=== PATIENT | male | born 1980 | race Caucasian/White ===

== ENCOUNTER → 2024-03-24 14:38 | Outpatient (REF) | payer BC, SELFPAY | LOC: DHCBC MAIN 14:38 | PROVIDERS: ATTENDING PHYSICIAN Internal Medicine Cardiovascular Disease; FAMILY PHYSICIAN Family Medicine | DX: R00.2 Palpitations (principal); I77.810 Thoracic aortic ectasia | CPT/HCPCS: 93306 ==

== ENCOUNTER 2025-01-07 23:41 | Observation (INO) | payer BC, SELFPAY ==
[2025-01-07 20:01] VITALS: BP 147/92
[2025-01-07 20:26] LABS: % Basophils 0.7 % (0-2); % Eosinophils 1.7 % (0-6); % Immature Granulocytes 0.3 % (0-0.5); % Monocytes 7.5 % (1.7-9.3); % Neutrophils 45.8 % (42.2-75.2); Absolute Basophils 0.1 10^3/uL (0-0.2); Absolute Eosinophils 0.2 10^3/uL (0-0.7); Absolute Lymphocytes 3.9 10^3/uL (1.2-3.4); Absolute Monocytes 0.7 10^3/uL (0.1-0.6); Hematocrit 43.6 % (39.0-52.0); Hemoglobin 15.2 g/dL (13.0-18.0); Mean Corp Hgb Conc. 34.9 g/dL (33.0-37.0); Mean Corpuscular Hgb 31.1 pg (27.0-31.0); Mean Corpuscular Volume 89.3 fL (80.0-94.0); Mean Platelet Volume 9.9 fL (7.4-10.4); Nucleated Red Blood Cells % 0 % (-); Platelet Count 248 10^3/uL (130-400); Red Blood Cell Count 4.88 10^6/uL (4.70-6.10); Red Cell Dist. Width 12.6 % (11.5-14.5); White Blood Cell Count 8.8 10^3/uL (4.8-10.8)
[2025-01-07 20:48] LABS: ALT (SGPT) 28 U/L (0-50); AST (SGOT) 30 U/L (17-59); Albumin 5.3 g/dl (3.5-5.0); Alkaline Phosphatase 49 U/L (38-126); Blood Urea Nitrogen 23 mg/dl (9-20); Calcium 9.7 mg/dl (8.4-10.2); Carbon Dioxide 24 mmol/L (22-30); Chloride 101 mmol/L (98-107); Glucose 106 mg/dl (70-99); Potassium 4.2 mmol/L (3.5-5.1); Sodium 139 mmol/L (135-145); Total Bilirubin 0.7 mg/dl (0.2-1.3); Total Protein 7.7 g/dl (6.3-8.2); eGFR > 60.00
[2025-01-07 20:56] LABS: NT-proBNP < 20.0 pg/ml; Troponin I < 0.012 ng/ml
[2025-01-07 21:00] VITALS: BP 134/93
--- NOTE | 2025-01-07 22:23 | HPS.HSE ---
Addendum entered and electronically signed by Yaakov Astudillo DO 01/07/25 23:47:
Patient seen and examined independently. Agree with findings and plan as set forth by Shania See PA-C.
Patient is a 44y M with PMH significant for hypertension who presents to ED complaining of chest pain. Patient reports intermittent L-sided chest pain over the past week or so. Mild SOB - moistly with exertion. No palpitations,
lightheadedness, nausea, diaphoresis, etc. Pain does not radiate to other areas. Patient is followed by Cardiology and has a stress test scheduled for next week.
Ass:
Atypical Chest Pain
Benign Hypertension
Dilated Aortic Arch
Plan:
Observe overnight for further evaluation.
Repeat troponin.
Continue metoprolol. Add ASA.
Follow for any new / recurrent symptoms.
Cardiology evaluation in the AM.
Original Note:
Family Physician
-
Family Physician: Jesus Fowler
Chief Complaint
-
Chest Pain
History of Present Illness
Patient is a 44 y/o male past medical history of hypertension, palpitations and dilated aortic root who presents with chest pain. Patient reports episodes of chest pain over the past week. He describes the pain as an ache across the left chest. He
also reports some shortness of breath particularly dyspnea on exertion. He denies any prior history of coronary artery disease.
Medical History
Past Medical History
Past Medical History: Reports Other
Additional Past Medical History:
Hypertension
Palpitations
Dilated Aortic Root
Past Surgical History: Reports Other
Additional Past Surgical History:
Lipoma Excision Bilateral Upper Extremities
Social History
Tobacco: Non-smoker
Alcohol: Occasional (Weekends)
Family History
Family History: Other (Father: CAD with stent in his late 50s)
Allergies / Home Medications
Allergies reflects when Allergies were last updated in [facility].
Home Medications with original date entered in [facility]
Allergy/Medication List:
Allergies
Allergy/AdvReac Type Severity Reaction Status Date / Time
No Known Allergies Allergy Verified 01/07/25 20:05
Home Medications
metoprolol succinate 25 mg tablet,extended release 24 hr 12.5 mg PO DAILY 01/07/25
Review of Systems
-
A 12 point ROS was completed and negative except as noted: Yes
Constitutional: Denies Fever or Chills
Respiratory: Denies Cough
Cardiac: Reports See HPI
Abdomen/GI: Denies Nausea
Physical Exam
Vital Signs
Vital Signs
Temp Pulse Resp BP Pulse Ox
97.6 F 75 18 134/93 98
01/07/25 20:01 01/07/25 22:15 01/07/25 22:15 01/07/25 21:00 01/07/25 22:15
Physical Exam
General: Comfortable and Conversant
HEENT: Anicteric and Moist mucous membranes
Respiratory: Clear and Non Labored Respirations
Cardiac: S1/S2, Regular Rhythm and Other (No chest wall tenderness); No Murmur
GI: Soft and Non Tender
Rectal: Deferred by Provider
Musculoskeletal: No Clubbing, No Cyanosis and No Edema
Skin: Warm and Dry
Neuro: Awake, Alert, Oriented and Nonfocal/grossly intact
Psych: Calm
Laboratory Results
-
01/07/25 20:21
01/07/25 20:21
Laboratory Results
Total Bilirubin 0.7 mg/dl (0.2-1.3) 01/07/25 20:21
AST 30 U/L (17-59) 01/07/25 20:21
ALT 28 U/L (0-50) 01/07/25 20:21
Alkaline Phosphatase 49 U/L (38-126) 01/07/25 20:21
Troponin I < 0.012 ng/ml 01/07/25 20:21
Data Reviewed
-
CT Scan: Report Reviewed by me
Lab Data: Labs Reviewed by me
Impression/Plan
-
Chest Pain
-Consult Cardiology
-Trend Troponin
-Check Lipid Panel
-NPO after midnight should patient require additional testing
Hypertension / Palpitations
-Continue Metoprolol
DVT proph: Lovenox
Code Status: Full Code
[2025-01-07 22:41] VITALS: BP 145/94
[2025-01-07 23:00] VITALS: BP 146/96
[2025-01-07 23:49] LABS: Troponin I < 0.012 ng/ml
[2025-01-08] VITALS: BP 116/78
[2025-01-08 00:10] VITALS: BP 137/92
[2025-01-08 00:17] VITALS: BMI 27.5
--- NOTE | 2025-01-08 00:19 | PTCARENOTE ---
received patient from the ED. AAOx3. denies any cp/sob at this time. educated patient to inform RN with any changes overnight. SR on tele 60s. bp 137/92. independent in the room. oriented to room. discussed plan of care. call ortega within reach.
[2025-01-08 05:27] VITALS: BP 117/89
--- NOTE | 2025-01-08 05:35 | PTCARENOTE ---
SB 50s overnight. no complaints of chest pain.
[2025-01-08 06:00] VITALS: BMI 28.2
[2025-01-08 06:06] LABS: Hematocrit 42.6 % (39.0-52.0); Hemoglobin 14.7 g/dL (13.0-18.0); Mean Corp Hgb Conc. 34.5 g/dL (33.0-37.0); Mean Corpuscular Volume 89.9 fL (80.0-94.0); Mean Platelet Volume 10.2 fL (7.4-10.4); Platelet Count 230 10^3/uL (130-400); Red Blood Cell Count 4.74 10^6/uL (4.70-6.10); Red Cell Dist. Width 12.5 % (11.5-14.5); White Blood Cell Count 6.4 10^3/uL (4.8-10.8)
[2025-01-08 06:20] LABS: Blood Urea Nitrogen 22 mg/dl (9-20); Calcium 9.3 mg/dl (8.4-10.2); Carbon Dioxide 27 mmol/L (22-30); Chloride 106 mmol/L (98-107); Estimated Creatinine Clearance 103 ml/min; Glucose 112 mg/dl (70-99); Potassium 4.3 mmol/L (3.5-5.1); Sodium 139 mmol/L (135-145); eGFR > 60.00
[2025-01-08 07:29] VITALS: BP 133/93
[2025-01-08 07:30] VITALS: BP 133/93
[2025-01-08] MEDS: TOPROL XL 12.5 MG PO (08:18)
[2025-01-08] MEDS: LOW STRENGTH ASPIRIN 81 MG PO (08:18)
--- NOTE | 2025-01-08 09:38 | CON.CAR ---
Consultation
Consultation Request
Date/Time Consultation Requested: 01/08/2025
Date/Time Consultation Performed: 01/08/2025
Reason for Consultation: Chest pain
Medical History
-
Chief Complaint: Chest pain
History of Present Illness:
44y M, patient of Dr. Celaya, with PMH significant for hypertension who presents to ED complaining of chest pain. Patient reports intermittent L-sided chest pain over the past week or so. Mild SOB - moistly with exertion. No palpitations,
lightheadedness, nausea, diaphoresis, etc. Pain does not radiate to other areas. Patient is followed by Cardiology and has a stress test scheduled for next week.
Patient was in a bar last night when he had sudden onset of vague weird feeling in his chest associated with tachycardia. He actually denies any chest pain but had shortness of breath associated with tachycardia. He did not feel well and ended up
coming to the ER. By the time he came to the ER, his condition has already improved. He was admitted for further workup.
.
Patient himself does not want to stay in the hospital and wants to go home if possible. His chest pain is atypical. He already has stress test scheduled later this week.
Past Medical History
Past Medical History: HTN and Other (Palpitations and dilated aortic root.)
Social History
Tobacco: Non-Smoker
Alcohol: Occasional
Family History
Family History: Early CAD (His father had coronary disease that required stenting in his 50s.)
Allergies / Home Medications
Allergy/AdvReac Type Severity Reaction Status Date / Time
No Known Allergies Allergy Verified 01/07/25 20:05
�Medication �Instructions �Recorded �Confirmed �Type
metoprolol succinate 25 mg 12.5 mg PO DAILY 01/07/25 01/08/25 History
tablet,extended release 24 hr
Review of Systems
-
All other systems: Negative unless noted
Physical Exam
Vital Signs
Temp Pulse Resp BP Pulse Ox
98.1 F 63 18 133/93 97
01/08/25 07:29 01/08/25 08:18 01/08/25 07:29 01/08/25 08:18 01/08/25 07:29
Lab Results
01/08/25 05:29
01/08/25 05:29
Troponin I Cancelled 01/08/25 05:15
Luw-G-Uptsgyommcu Pept < 20.0 pg/ml 01/07/25 20:21
Physical Exam
General: Well Developed, Well Nourished, No Apparent Distress, Comfortable and Other (Esotropia)
HEENT: Normocephalic, Anicteric and Moist Mucous Membranes
Respiratory: Clear and Non Labored Respirations
Cardiac: S1/S2 and Regular Rhythm; Negative Murmur
GI: Soft, Non Tender, Non Distended and Normal Bowel Sounds
Musculoskeletal: No Clubbing, No Cyanosis and No Edema
Skin: Warm and Dry
Neuro: Awake, Alert, Oriented, AO x 3 and No Motor Deficits
Hematologic/Lymphatic: Lymphadenopathy
Impression / Plan
-
44-year-old gentleman with history of hypertension, family history of premature coronary disease, presented with palpitations and atypical chest pressure
Chest pain
-Atypical chest pressure
-Acute coronary syndrome is ruled out
-Negative troponin x 2
-Unremarkable EKG
-Echo 03/24/2024 normal left and right ventricular systolic functions. Left atrial dilatation and dilated aortic root at 4.3 cm.
-Patient is tall 6 feet 4 inches and a large person�aortic root of 4.3 cm may be normal for him.
-We discussed and offered stress test in a.m. however, patient is more interested in going home to watch his Super Bowl at home.
-Plan for stress test on already scheduled.
-Okay to discharge home.
Palpitations
-Patient's palpitations and tachycardia could be related to supraventricular tachycardia
-Symptoms started with consumption of alcohol; with left atrial enlargement could be related to atrial fibrillation
-Will need monitoring for the next couple of weeks
-Consider CAM/Bardy for 2 weeks
Data Reviewed
-
EKG: Tracing Personally Visualized and interpreted and Report Reviewed by me
Radiology: Image Personally Visualized and interpreted
Labs: Labs Reviewed by me, Discussed with Physician and Discussed with Patient
Old Records: Reviewed
[2025-01-08 10:08] LABS: Glycohemoglobin (HgbA1c) 5.7 % (4.0-5.6)
--- NOTE | 2025-01-08 10:53 | W.PN.HOSP.TC ---
Today's Communication/Plan
-
Discharge today
Assessment / Plan
Assessment / Plan
Physical Exam
General: Not in acute distress
HEENT: Normocephalic. Moist mucous membranes
Respiratory: Clear to Auscultation Bilaterally
Cardiac: S1/S2, Regular Rhythm
GI: Soft and Non Tender. Positive bowel sounds.
Musculoskeletal: No Cyanosis and No Edema
Skin: Warm and Dry
Neuro: Awake, Alert, Oriented and Nonfocal/grossly intact
Psych: Calm
Assessment/Plan
Chest Pain
-Consult Cardiology: patient likely has SVT
-ACS ruled out
-Discussed with cardiology, okay to discharge today
-Patient has outpatient stress test on 01/12/25
Hypertension
-Continue Metoprolol
Dilated Aortic Arch
DVT proph: Lovenox
Code Status: Full Code
More than 30 minutes spent in discharge including
Final examination of the patient
Summarizing hospital stay
Instructions for continuing care to all relevant caregivers
Preparation of discharge records, prescriptions, and referral forms
Total time spent (in minutes): 38
Anticipated Discharge: Today
Subjective/Interval History
-
Date of Service: January 08, 2025
Objective Data
-
Labs:
Laboratory Results
01/08/25
05:29
WBC 6.4
Hgb 14.7
Hct 42.6
Plt Count 230
Sodium 139
Potassium 4.3
Chloride 106
Carbon Dioxide 27
BUN 22 H
Creatinine 1.1
Glucose 112 H
Calcium 9.3
Vital Signs:
Vital Signs
Temp Pulse Resp BP Pulse Ox
98.1 F 63 18 133/93 97
01/08/25 07:29 01/08/25 08:18 01/08/25 07:29 01/08/25 08:18 01/08/25 07:29
[2025-01-08 11:46] VITALS: BP 135/97
--- NOTE | 2025-01-08 11:51 | PTCARENOTE ---
01/08/25 Received patient in bed, AAO x3. Pt with no complaints at this time. Pt on compliance monitor NSR, BP stable. Awaiting cardiology consult. Will monitor throughout shift
--- NOTE | 2025-01-08 14:23 | W.DCSUMMARY ---
Discharge Summary
Discharge Data
Date of Admission: 01/07/25
Date of Discharge: 01/08/25
Total time spent discharging patient (in min): 38
-
Pending Results: No
Hospital Course
44 y/o male with past medical history of hypertension, presented with chest pain. Cardiology was consulted and mentioned acute coronary syndrome was ruled out and patient would need outpatient follow-up with cardiology for stress test and evaluation
for supraventricular tachycardia with outpatient cardiac monitoring.
Discharge Plan
-
Patient Disposition: Home (Routine Discharge)
Discharge Diagnosis/Procedures: Chest Pain
Suspected Supraventricular Tachycardia
Hypertension
Dilated Aortic Arch
HbA1c 5.7%
Condition: Good
Diet: Low Fat, Low Cholesterol and Low Sodium
Additional Diets: Also limit carbohydrates to help prevent Diabetes Mellitus
Activity: As tolerated
Activity Restrictions/Additional Instructions:
If you need a work note beyond 01/12/25, please ask your primary care provider or supervisor beater room.
Stand Alone Forms: Return to Work
Referrals:
Jesus Fowler MD [Family Provider] - in less than 1 week
Winston Greene MD [Active] - in less than 1 week (Outpatient Stress Test 01/12/25)
Prescriptions:
Continued
metoprolol succinate 25 mg tablet extended release 24 hr
12.5 mg PO DAILY
Discharge Orders:
Discharge Patient (As Directed); Ordered 01/08/25
Ordered By: Chriss Harp
Discharge Date and Time
Discharge Date/Time: 01/08/25 14:48
Print Language: VIET[place]ESE
== END 2025-01-08 14:48 | disposition home or self-care (01) ==
LOC: IVU 23:41
PROVIDERS: Emergency Medicine; Physician Assistant Medical; ADMITTING PHYSICIAN Hospitalist; ATTENDING PHYSICIAN Hospitalist; CONSULT PHYSICIAN Internal Medicine Cardiovascular Disease; EMERGENCY PHYSICIAN Emergency Medicine; FAMILY PHYSICIAN Family Medicine
DX: R07.89 Other chest pain (principal); R00.2 Palpitations; R00.0 Tachycardia, unspecified; I10 Essential (primary) hypertension; I77.819 Aortic ectasia, unspecified site; Z79.899 Other long term (current) drug therapy; Z82.49 Family history of ischemic heart disease and other diseases of the circulatory system
CPT/HCPCS: 71275; 80048; 80053; 83036; 83880; 84484; 85025; 85027; 93005; 99285; G0378; Q9967

== ENCOUNTER → 2025-01-12 14:10 | Outpatient (REF) | payer BC, SELFPAY | LOC: RCS 14:10 | PROVIDERS: ATTENDING PHYSICIAN Internal Medicine Cardiovascular Disease; FAMILY PHYSICIAN Family Medicine | DX: R06.09 Other forms of dyspnea (principal) | CPT/HCPCS: 93017; 93350 ==

== ENCOUNTER → 2025-01-16 14:56 | Outpatient (REF) | payer BC, SELFPAY | LOC: RCS 14:56 | PROVIDERS: ATTENDING PHYSICIAN Internal Medicine Cardiovascular Disease; FAMILY PHYSICIAN Family Medicine | DX: R06.09 Other forms of dyspnea (principal) | CPT/HCPCS: 93306 ==

== ENCOUNTER → 2025-01-28 07:45 | Outpatient (REF) | payer BC, SELFPAY ==
[2025-01-28 08:35] LABS: % Basophils 0.7 % (0-2); % Eosinophils 2.4 % (0-6); % Immature Granulocytes 0.2 % (0-0.5); % Lymphocytes 39.8 % (20.5-51.1); % Monocytes 6.7 % (1.7-9.3); % Neutrophils 50.2 % (42.2-75.2); Absolute Eosinophils 0.1 10^3/uL (0-0.7); Absolute Lymphocytes 2.3 10^3/uL (1.2-3.4); Absolute Monocytes 0.4 10^3/uL (0.1-0.6); Absolute Neutrophils 2.9 10^3/uL (1.4-6.5); Hematocrit 46.5 % (39.0-52.0); Mean Corp Hgb Conc. 34.4 g/dL (33.0-37.0); Mean Corpuscular Hgb 30.9 pg (27.0-31.0); Mean Corpuscular Volume 89.9 fL (80.0-94.0); Mean Platelet Volume 10.3 fL (7.4-10.4); Nucleated Red Blood Cells % 0 % (-); Platelet Count 254 10^3/uL (130-400); Red Blood Cell Count 5.17 10^6/uL (4.70-6.10); Red Cell Dist. Width 12.7 % (11.5-14.5); White Blood Cell Count 5.8 10^3/uL (4.8-10.8)
[2025-01-28 09:07] LABS: ALT (SGPT) 32 U/L (0-50); AST (SGOT) 27 U/L (17-59); Albumin 5.4 g/dl (3.5-5.0); Alkaline Phosphatase 45 U/L (38-126); Blood Urea Nitrogen 19 mg/dl (9-20); Calcium 10.2 mg/dl (8.4-10.2); Carbon Dioxide 26 mmol/L (22-30); Chloride 102 mmol/L (98-107); Glucose 108 mg/dl (70-99); HDL Cholesterol 57 mg/dl; LDL Cholesterol, Calculated 122 mg/dl; Potassium 5.1 mmol/L (3.5-5.1); Sodium 140 mmol/L (135-145); Total Bilirubin 1.6 mg/dl (0.2-1.3); Total Cholesterol 191 mg/dl (50-199); Total Protein 7.8 g/dl (6.3-8.2); Triglyceride 61 mg/dl (10-149); Very Low Density Lipoprotein 12 mg/dl (0-30); eGFR > 60.00
[2025-01-28 09:38] LABS: TSH Reflex To Free T4 2.15 uIU/ml (0.47-4.68)
--- NOTE | 2025-01-30 15:00 | ED.GENMED ---
History of Present Illness
General
Source: patient
Exam Limitations: none
History of Present Illness
History of Present Illness:
44-year-old male presents to the emergency department with intermittent episodes of chest pain. Also an episode of near syncope. Intermittent chest pain over 1 week. Mild shortness of breath mostly with exertion. Near syncope while at a bar. No
shortness of breath at rest. No pleuritic pain
Past History
Past History
ED Past Medical History: HTN and Other (Aortic root dilatation)
Social History
Tobacco: Non-smoker
Personal:
Living: with family
Employment: Employed
Phy Exam
Physical Exam
Physical Exam:
GENERAL: Alert and oriented in no apparent distress
EYE: Orbits normal.
NECK: Supple
CARDIAC: Regular rate and rhythm without any obvious murmurs.
LUNGS: Clear breath sounds,normal
ABDOMEN: Soft, without focal tenderness or distention
NEUROLOGICAL: Alert and oriented , grossly non-focal
SKIN: Warm and dry, no rash or lesion, no discoloration, skin intact.
MUSCULOSKELETAL: No edema,no deformity.Good color
PSYCH: Normal and appropriate interaction.
Course
Orders/Labs/Results
Orders:
Orders
01/28/25 08:03
Cardiovascular Evaluation Routine
Complete Blood Count/With Diff Routine
Comprehensive Metabolic Panel Routine
TSH Reflex To Free T4 Routine
Abnormal Lab Results
01/28/25
08:03
Glucose 108 H mg/dl
(70-99)
Total Bilirubin 1.6 H mg/dl
(0.2-1.3)
Albumin 5.4 H g/dl
(3.5-5.0)
01/28/25 08:03
01/28/25 08:03
MDM/Problems Addressed
Differential Diagnosis Includes:
Patient with recurrent episodes of chest pain some exertional shortness of breath and near syncope in a bar. Warranted inpatient workup and cardiac workup. CT angiography was stable.
*EKG
Interpreted by ED Provider?: Yes
Interpretation: normal
Comparison EKG: no comparison EKG present
Heart Rate: 73
Rate: normal
Rhythm: sinus
[place]: normal axis
Interval: normal interval
QRS Pattern: normal QRS
Ischemia: no ischemia
*Knockout Worker Interpretation
Rate: normal
Interpretation: normal
*Critical Care Note
Total Time (30-74mins, 75-104mins- exclusive of procedures): Not Applicable
ED Attending Note
-
Portions of this chart may have been created with voice recognition software.� Occasional wrong word or��sound alike� substitutions may have occurred due to the inherent limitations of voice recognition software.
Discharge Plan
-
Referrals:
Jesus Fowler MD [Family Provider] -
Prescriptions:
No Action
metoprolol succinate 25 mg tablet extended release 24 hr
12.5 mg PO DAILY
Discharge Date and Time
Print Language: URDU
== END ==
LOC: REG 07:45
PROVIDERS: ATTENDING PHYSICIAN Family Medicine
DX: Z00.00 Encounter for general adult medical examination without abnormal findings (principal)
CPT/HCPCS: 36415; 80053; 80061; 84443; 85025

== ENCOUNTER → 2025-10-17 16:46 | Outpatient (REF) | payer BC, SELFPAY | LOC: RAD 16:46 | PROVIDERS: ATTENDING PHYSICIAN Internal Medicine Cardiovascular Disease; FAMILY PHYSICIAN Family Medicine | DX: I77.810 Thoracic aortic ectasia (principal) | CPT/HCPCS: 71275; Q9967 ==